=== PATIENT | male | born 1965 ===

== ENCOUNTER 2016-10-31 12:13 | Observation (INO) | payer BC ==
--- NOTE | ~2016-10-31 | PRECARD ---
H&P [facility] [address] [place]. [address] NAME: SARAH WYATT : 63 STATUS : ADM Ana PAT#: [id number] AGE: 51 ADM/REG DATE : 10/31/16 MR#: [id number] REPORT SERV DATE: 10/31/16 DICTATED BY: ANJEL ENGEL DATE: 10/31/16 REPORT STATUS : Draft TRANSCRIBED BY: NOEL DATE: 10/31/16 DATE OF ADMISSION: 10/31/2016 CHIEF COMPLAINT: Chest pain. REASON FOR ADMISSION: Chest pain. SOURCE: Patient chart. HISTORY OF PRESENT ILLNESS: Mr. Wyatt is a very pleasant 51-year-old white man with no significant past cardiac history. He reports that five days ago, he began having abdominal pain, which he described as gas and he took Tums and Gas-X and got relief after several hours. He then ate red pepper pizza and had the same pain. He took more Tums and it got better. Four days ago, he had the same pain after eating the leftovers. He had some shortness of breath while he was working that day. Two days ago, he did not have much symptoms, but yesterday, he woke up at about 4 in the morning with chest and abdominal pain. He sat up, but it lasted about 11 hours altogether. He did not have any radiation and was described as dull, 6/10 in severity. No associated nausea, vomiting, dyspnea, or diaphoresis. No diarrhea or constipation. No fever or chills. He denies any GI blood loss. He has never had any pain like that before. He came to the emergency room today because of the episode yesterday. He is pain-free now. REVIEW OF SYSTEMS: All other systems are negative. ALLERGIES: SHELLFISH. MEDICATIONS AT HOME: Included Maalox, Halfprin, Tums, Zyrtec, Advil, and Gas-X. CARDIAC RISK FACTORS: Family history. Denies diabetes, hypertension, cholesterol, or tobacco. SOCIAL HISTORY: The patient lives in [place], [place]. He is . He has two children, one has Down syndrome, the other is alive and well. 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 FAMILY HISTORY: Father had coronary artery bypass grafting at age 56. Mother had coronary artery bypass grafting at age 56. PAST MEDICAL HISTORY: Denies any hospitalizations ever. PAST SURGICAL HISTORY: No surgeries. PHYSICAL EXAMINATION: GENERAL: He is a well-developed, well-nourished, middle-aged white man, in no acute distress. H&P [address] [address] NAME: SARAH WYATT : 63 STATUS : ADM Ana PAT#: [id number] AGE: 51 ADM/REG DATE : 10/31/16 MR#: [id number] REPORT SERV DATE: 10/31/16 DICTATED BY: ANJEL ENGEL DATE: 10/31/16 REPORT STATUS : Draft TRANSCRIBED BY: NOEL DATE: 10/31/16 HEENT: Anicteric. No xanthelasma, lips without cyanosis. NECK: No JVD, no thyromegaly, carotids 2+ and symmetrical without bruits. LUNGS: Clear to auscultation. No use of accessory muscles. COR: Regular rate and rhythm. Normal S1 and S2. No S3 or S4. No murmurs or rubs. PMI left 5th ICS,MCL. ABDOMEN: Positive bowel sounds, soft, non-tender. No bruits, no hepatomegaly. MUSCULOSKELETAL: No kyphosis. Normal muscle tone. EXTREMITIES: Femoral and pedal pulses 2+ and symmetrical. No clubbing, cyanosis or edema. No varicosities. SKIN: No venous stasis changes. NEURO: Alert and oriented x 3. DIAGNOSTIC DATA: EKG reveals sinus rhythm, incomplete right bundle-branch block. LABORATORY EXAMINATION: Includes white count 6.6, hemoglobin 16.6, hematocrit 47.8, and platelets 139,000. INR 1.0, PTT of 25.0. Sodium 141, potassium 4.5, chloride 105, CO2 of 30, glucose 103, BUN 18, creatinine 1.06. Troponin of 3.16. IMPRESSION: 1. Chest and abdominal pain over the last five days, last episode yesterday, now resolved. 2. Elevated troponin. 3. Family history of coronary artery disease. RECOMMENDATIONS: 1. Cardiac catheterization, possible angioplasty. The risks, benefits, and complications were discussed with the patient. He understands them and those of his alternatives and wishes to proceed. Questions answered. Plan today: He would be a candidate for the right radial approach. He has normal Jaron and reverse Jaron test in the right arm. He would be a candidate for drug-eluting stent if needed. 2. Aspirin and nitrates. 3. Check fasting lipid profile and statin therapy. 4. Further recommendations following the above. LUIS M/CAMERONL Anjel Engel M.D. / [id number] CC: Yael Maldonado M.D.
[2016-10-31 11:01] LABS: BASOPHILS 0.2 %; BASOPHILS ABSOLUTE 0.01 10/3/uL (0.0-0.16); EOSINOPHILS 2.1 %; EOSINOPHILS ABSOLUTE 0.14 10/3/uL (0.0-0.53); ER CBC TAT 0 Hrs 05 Mins; HEMATOCRIT 47.8 % (40.0-51.0); HEMOGLOBIN 16.6 g/dL (13.6-17.8); IMMATURE GRANULOCYTES 0.2 %; IMMATURE GRANULOCYTES ABSOLUTE 0.01 10/3/uL (0.0-0.11); LYMPHOCYTES 20.3 %; LYMPHOCYTES ABSOLUTE 1.34 10/3/uL (0.67-4.30); MEAN CORPUS HGB CONC 34.7 g/dL (32.0-36.0); MEAN CORPUSCULAR HEMOGLOB 29.6 pg (26.0-34.0); MEAN CORPUSCULAR VOLUME 85.4 fL (80-100); MEAN PLATELET VOLUME 9.1 fL (9.2-13.0); MONOCYTES 8.5 %; MONOCYTES ABSOLUTE 0.56 10/3/uL (0.21-1.20); NEUTROPHILS 68.7 %; NEUTROPHILS ABSOLUTE 4.55 10/3/uL (2.02-8.40); PLATELET COUNT 139 10/3/uL (150-400); RBC DISTRIBUTION WIDTH 12.7 % (12.0-16.0); WHITE BLOOD CELLS 6.6 10/3/uL (4.5-10.5)
[2016-10-31 11:02] LABS: MANUAL DIFF NO %
[2016-10-31 11:11] LABS: PROTIME (NOT ORD) 13.2 SEC (12.0-14.5)
[2016-10-31 11:20] LABS: BUN (BLOOD UREA NITROGEN) 18 MG/DL (6-23); CALCIUM, SERUM 9.9 MG/DL (8.5-10.4); CHLORIDE, SERUM 105 MMOL/L (96-112); CO2 (CARBON DIOXIDE) 30 MMOL/L (24-34); CREATININE 1.06 MG/DL (0.70-1.30); GFR AFRICAN AMERICAN 93 ML/MIN (>=60); GFR NON AFRICAN AMERICAN 80 ML/MIN (>=60); POTASSIUM, SERUM 4.5 MMOL/L (3.5-5.3); SODIUM, SERUM 141 MMOL/L (135-148)
[2016-10-31 11:22] LABS: CHEST PAIN PROFILE TAT 0 Hrs 26 Mins; GLUCOSE, SERUM 103 MG/DL (60-99); TROPONIN I 3.16 NG/ML (<0.05)
[~2016-10-31 12:13] MED LIST: ADVIL PO; GAS-X80 MG PO; HALF81 PO; MAALOX PO; TUMSROLL PO; ZYRTEC ALLGY10 MG PO
[2016-10-31 13:00] LABS: TROPONIN I 2.91 NG/ML (<0.05)
[2016-10-31 16:39] LABS: CHOL/HDL RATIO(NOT ORDER) 4.9 (0-5)
[2016-10-31 19:07] LABS: BASOPHILS 0.1 %; BASOPHILS ABSOLUTE 0.01 10/3/uL (0.0-0.16); EOSINOPHILS 0.4 %; EOSINOPHILS ABSOLUTE 0.04 10/3/uL (0.0-0.53); HEMATOCRIT 43.6 % (40.0-51.0); HEMOGLOBIN 15.3 g/dL (13.6-17.8); IMMATURE GRANULOCYTES 0.2 %; IMMATURE GRANULOCYTES ABSOLUTE 0.02 10/3/uL (0.0-0.11); LYMPHOCYTES 11.7 %; LYMPHOCYTES ABSOLUTE 1.07 10/3/uL (0.67-4.30); MEAN CORPUS HGB CONC 35.1 g/dL (32.0-36.0); MEAN CORPUSCULAR HEMOGLOB 29.8 pg (26.0-34.0); MEAN PLATELET VOLUME 9.3 fL (9.2-13.0); MONOCYTES 6.6 %; NEUTROPHILS ABSOLUTE 7.38 10/3/uL (2.02-8.40); PLATELET COUNT 133 10/3/uL (150-400); RBC DISTRIBUTION WIDTH 12.8 % (12.0-16.0); RED CELL COUNT 5.13 10/6/uL (4.7-6.1); WHITE BLOOD CELLS 9.1 10/3/uL (4.5-10.5)
[2016-10-31 19:11] LABS: MANUAL DIFF NO %
[2016-10-31 19:20] LABS: CK-MB 8.6 NG/ML; CKMB INDEX (NOT ORD) 4.9
[2016-10-31 19:21] LABS: TROPONIN I 2.65 NG/ML (<0.05)
[2016-10-31 22:24] LABS: BASOPHILS 0.1 %; BASOPHILS ABSOLUTE 0.01 10/3/uL (0.0-0.16); EOSINOPHILS 0.6 %; EOSINOPHILS ABSOLUTE 0.04 10/3/uL (0.0-0.53); HEMATOCRIT 41.7 % (40.0-51.0); HEMOGLOBIN 14.6 g/dL (13.6-17.8); IMMATURE GRANULOCYTES 0.1 %; IMMATURE GRANULOCYTES ABSOLUTE 0.01 10/3/uL (0.0-0.11); LYMPHOCYTES 20.2 %; LYMPHOCYTES ABSOLUTE 1.43 10/3/uL (0.67-4.30); MEAN CORPUSCULAR HEMOGLOB 29.8 pg (26.0-34.0); MEAN CORPUSCULAR VOLUME 85.1 fL (80-100); MEAN PLATELET VOLUME 9.3 fL (9.2-13.0); MONOCYTES 8.7 %; MONOCYTES ABSOLUTE 0.62 10/3/uL (0.21-1.20); NEUTROPHILS 70.3 %; NEUTROPHILS ABSOLUTE 4.98 10/3/uL (2.02-8.40); PLATELET COUNT 124 10/3/uL (150-400); RBC DISTRIBUTION WIDTH 12.8 % (12.0-16.0); WHITE BLOOD CELLS 7.1 10/3/uL (4.5-10.5)
[2016-10-31 22:27] LABS: MANUAL DIFF NO %
[2016-11-01 03:02] LABS: BASOPHILS 0.2 %; BASOPHILS ABSOLUTE 0.01 10/3/uL (0.0-0.16); EOSINOPHILS 2.2 %; EOSINOPHILS ABSOLUTE 0.14 10/3/uL (0.0-0.53); HEMATOCRIT 41.3 % (40.0-51.0); HEMOGLOBIN 14.4 g/dL (13.6-17.8); IMMATURE GRANULOCYTES 0.2 %; IMMATURE GRANULOCYTES ABSOLUTE 0.01 10/3/uL (0.0-0.11); LYMPHOCYTES 25.7 %; LYMPHOCYTES ABSOLUTE 1.63 10/3/uL (0.67-4.30); MEAN CORPUS HGB CONC 34.9 g/dL (32.0-36.0); MEAN CORPUSCULAR HEMOGLOB 29.8 pg (26.0-34.0); MEAN CORPUSCULAR VOLUME 85.3 fL (80-100); MEAN PLATELET VOLUME 9.5 fL (9.2-13.0); MONOCYTES 10.9 %; MONOCYTES ABSOLUTE 0.69 10/3/uL (0.21-1.20); NEUTROPHILS 60.8 %; NEUTROPHILS ABSOLUTE 3.86 10/3/uL (2.02-8.40); PLATELET COUNT 134 10/3/uL (150-400); RBC DISTRIBUTION WIDTH 12.8 % (12.0-16.0); RED CELL COUNT 4.84 10/6/uL (4.7-6.1); WHITE BLOOD CELLS 6.3 10/3/uL (4.5-10.5)
[2016-11-01 03:11] LABS: MANUAL DIFF NO %
[2016-11-01 03:16] LABS: BUN (BLOOD UREA NITROGEN) 15 MG/DL (6-23); CALCIUM, SERUM 9.2 MG/DL (8.5-10.4); CHLORIDE, SERUM 108 MMOL/L (96-112); CHOL/HDL RATIO(NOT ORDER) 3.9 (0-5); CHOLESTEROL 164 MG/DL (< 200); CK-MB 12.5 NG/ML; CKMB INDEX (NOT ORD) 7.1; CO2 (CARBON DIOXIDE) 25 MMOL/L (24-34); CPK 177 U/L (0-200); CREATININE 0.81 MG/DL (0.70-1.30); GFR AFRICAN AMERICAN 118 ML/MIN (>=60); GFR NON AFRICAN AMERICAN 102 ML/MIN (>=60); GLUCOSE, SERUM 111 MG/DL (60-99); HDL CHOLESTEROL 42 MG/DL (> 39); LDL CHOLESTEROL 99 MG/DL (< 130); NON-HDL CHOLESTEROL 122 MG/DL (< 160); SGPT(ALT) 26 U/L (5-65); SODIUM, SERUM 142 MMOL/L (135-148); TRIGLYCERIDE 117 MG/DL (< 150)
[2016-11-01] MEDS ORDERED: PRIN2.5 PO (08:15)
[2016-11-01] MEDS ORDERED: LIPITOR40 PO (08:15)
[2016-11-01] MEDS ORDERED: BRILINTA90 MG PO (08:16)
[2016-11-01] MEDS ORDERED: LOP25 PO (08:16)
[2016-11-01] MEDS ORDERED: NITROQUICK0.4 MG SL (08:17)
== END 2016-11-01 09:20 | disposition home or self-care (01) ==
LOC: ER 12:13 → SSU1 12:49
PROVIDERS: Emergency Medicine; Internal Medicine Cardiovascular Disease
DX: I21.4 Non-ST elevation (NSTEMI) myocardial infarction (principal); I25.118 Atherosclerotic heart disease of native coronary artery with other forms of angina pectoris; I24.9 Acute ischemic heart disease, unspecified; Z82.49 Family history of ischemic heart disease and other diseases of the circulatory system; Z95.5 Presence of coronary angioplasty implant and graft; Z91.013 Allergy to seafood; Z79.899 Other long term (current) drug therapy
CPT/HCPCS: 71020; 80048; 80061; 82550; 82553; 83735; 84460; 84484; 85025; 85347; 85610; 85730; 93005; 93458; 96374; 96375; 96376; 99152; 99153; 99291; A9270-GY; C1725; C1769; C1876; C1887; C1894; C9600; G0378; J1327; J2250; J2405; J3010; Q9967